=== PATIENT | female | born 1995 | race Caucasian/White ===

== ENCOUNTER 2018-05-16 19:12 | Emergency (ER) | payer OTHER ==
[2018-05-16 20:21] LABS: HEMATOCRIT 38.4 % (36.0-47.0); HEMOGLOBIN 13.2 g/dl (12.0-15.5); MEAN CORPUSCULAR HEMOGLOBIN 31.9 pg (27.0-33.0); MEAN CORPUSCULAR HGB CONC 34.4 g/dl (32.0-36.5); MEAN CORPUSCULAR VOLUME 92.8 fl (80.0-96.0); PLATELET COUNT, AUTOMATED 226 10^3/uL (150-450); RED BLOOD COUNT 4.14 10^6/uL (4.00-5.40); RED CELL DISTRIBUTION WIDTH 11.9 % (11.5-14.5); WHITE BLOOD COUNT 8.3 10^3/uL (4.0-10.0)
[2018-05-16 20:33] LABS: INR 1.14; PROTHROMBIN TIME 14.7 SECONDS (12.1-14.4)
[2018-05-16 20:35] LABS: CONTROL LINE HCG INT CTR LINE PRESENT; HCG, SERUM QUALITATIVE NEGATIVE (NEGATIVE)
[2018-05-16 20:39] LABS: ANION GAP 6 MEQ/L (8-16); BLOOD UREA NITROGEN 10 MG/DL (7-18); CALCIUM LEVEL 9.1 MG/DL (8.5-10.1); CARBON DIOXIDE LEVEL 31 MEQ/L (21-32); CHLORIDE LEVEL 105 MEQ/L (98-107); CREATININE FOR GFR 0.73 MG/DL (0.55-1.30); GLOMERULAR FILTRATION RATE > 60.0 (>60); GLUCOSE, FASTING 53 MG/DL (70-100); POTASSIUM SERUM 3.5 MEQ/L (3.5-5.1); SODIUM LEVEL 142 MEQ/L (136-145)
== END 2018-05-16 22:22 | disposition home or self-care (01) ==
LOC: M ED 19:12
DX: N93.8 Other specified abnormal uterine and vaginal bleeding (principal); N83.00 Follicular cyst of ovary, unspecified side; Z87.891 Personal history of nicotine dependence
CPT/HCPCS: 76856

== ENCOUNTER → 2018-05-27 | Outpatient (REF) | payer OTHER ==
[2018-05-27 18:43] LABS: CHLAMYDIA DNA AMPLIFICATION NEGATIVE (NEGATIVE); GC DNA AMPLIFICATION NEGATIVE (NEGATIVE)
== END ==
LOC: M SFHCLERA 12:14
DX: R11.10 Vomiting, unspecified (principal)

== ENCOUNTER 2018-08-27 22:29 | Emergency (ER) | payer OTHER ==
[~2018-08-27] VITALS: Ht 180.3 cm; Wt 56.8 kg
[2018-08-27 23:04] VITALS: BP 111/58
[2018-08-27 23:17] LABS: HEMATOCRIT 44.2 % (36.0-47.0); HEMOGLOBIN 14.9 g/dl (12.0-15.5); MEAN CORPUSCULAR HEMOGLOBIN 32.6 pg (27.0-33.0); MEAN CORPUSCULAR HGB CONC 33.7 g/dl (32.0-36.5); MEAN CORPUSCULAR VOLUME 96.7 fl (80.0-96.0); PLATELET COUNT, AUTOMATED 294 10^3/uL (150-450); RED BLOOD COUNT 4.57 10^6/uL (4.00-5.40); WHITE BLOOD COUNT 11.7 10^3/uL (4.0-10.0)
[2018-08-27 23:34] LABS: AMPHETAMINES LEVEL URINE NEGATIVE (NEGATIVE); BARBITURATES URINE NEGATIVE (NEGATIVE); BENZODIAZEPINES URINE NEGATIVE (NEGATIVE); CANNABINOIDS URINE POSITIVE (NEGATIVE); COCAINE METABOLITE URINE NEGATIVE (NEGATIVE); METHADONE URINE NEGATIVE (NEGATIVE); OPIATES URINE NEGATIVE (NEGATIVE); PHENCYCLIDINE URINE NEGATIVE (NEGATIVE)
[2018-08-27 23:39] LABS: ACETAMINOPHEN LEVEL < 2.0 UG/ML (10.0-30.0); ALBUMIN 4.3 GM/DL (3.2-5.2); ALT/SGPT 19 U/L (12-78); BILIRUBIN,DIRECT < 0.1 MG/DL (0.0-0.2); BILIRUBIN,TOTAL 0.2 MG/DL (0.2-1.0); BLOOD UREA NITROGEN 7 MG/DL (7-18); CALCIUM LEVEL 8.6 MG/DL (8.5-10.1); CARBON DIOXIDE LEVEL 30 MEQ/L (21-32); CHLORIDE LEVEL 107 MEQ/L (98-107); ETHYL ALCOHOL (ETHANOL) < 0.003 % (0.000-0.010); GLOMERULAR FILTRATION RATE > 60.0 (>60); GLUCOSE, FASTING 103 MG/DL (70-100); POTASSIUM SERUM 3.6 MEQ/L (3.5-5.1); SALICYLATE LEVEL 4.3 MG/DL (5.0-30.0); SODIUM LEVEL 141 MEQ/L (136-145); TOTAL PROTEIN 7.4 GM/DL (6.4-8.2)
== END 2018-08-28 01:43 | disposition home or self-care (01) ==
LOC: M ED 22:29
DX: F43.0 Acute stress reaction (principal); F17.200 Nicotine dependence, unspecified, uncomplicated
CPT/HCPCS: 36415; 80048; 80076; 80307; 84443; 85027; 99284; G0480

== ENCOUNTER → 2018-12-09 | Outpatient (REF) | payer OTHER ==
[~2018-12-09] MED LIST: DICY10CA13 PO
== END ==
LOC: M SFHCLERA 14:27
PROVIDERS: ATTEND Physician Assistant
DX: R10.84 Generalized abdominal pain (principal)
CPT/HCPCS: 81002; 81025; 87086; G0463

== ENCOUNTER 2018-12-10 23:24 | Emergency (ER) | payer OTHER ==
[~2018-12-10] VITALS: Ht 180.3 cm; Wt 55.9 kg
[2018-12-11 00:28] LABS: BASO % 0.2 % (0.0-1.0); EOS # 0.1 10^3/uL (0.0-0.50); EOS % 0.7 % (0.0-3.0); HEMATOCRIT 32.4 % (36.0-47.0); HEMOGLOBIN 11.1 g/dl (12.0-15.5); LYMPH # 1.7 10^3/uL (1.5-6.5); MEAN CORPUSCULAR HEMOGLOBIN 31.4 pg (27.0-33.0); MEAN CORPUSCULAR HGB CONC 34.3 g/dl (32.0-36.5); MEAN CORPUSCULAR VOLUME 91.8 fl (80.0-96.0); MONO # 0.5 10^3/uL (0.0-0.8); MONO % 4.8 % (0.0-5.0); NEUTROPHILS # 8.4 10^3/uL (1.8-7.7); NEUTROPHILS % 77.4 % (36.0-66.0); PLATELET COUNT, AUTOMATED 325 10^3/uL (150-450); RED BLOOD COUNT 3.53 10^6/uL (4.00-5.40); WHITE BLOOD COUNT 10.8 10^3/uL (4.0-10.0)
[2018-12-11 00:40] LABS: ALBUMIN 2.8 GM/DL (3.2-5.2); ALT/SGPT 25 U/L (12-78); BILIRUBIN,DIRECT 0.1 MG/DL (0.0-0.2); BILIRUBIN,TOTAL 0.5 MG/DL (0.2-1.0); BLOOD UREA NITROGEN 11 MG/DL (7-18); CALCIUM LEVEL 8.2 MG/DL (8.5-10.1); CARBON DIOXIDE LEVEL 28 MEQ/L (21-32); CHLORIDE LEVEL 105 MEQ/L (98-107); CREATININE FOR GFR 0.65 MG/DL (0.55-1.30); GLOMERULAR FILTRATION RATE > 60.0 (>60); GLUCOSE, FASTING 87 MG/DL (70-100); LIPASE 68 U/L (73-393); POTASSIUM SERUM 3.9 MEQ/L (3.5-5.1); SODIUM LEVEL 140 MEQ/L (136-145)
[2018-12-11 01:07] LABS: HCG, SERUM QUALITATIVE NEGATIVE (NEGATIVE)
[2018-12-11] MEDS: GASTROGRAFIN SOLUTION 30ML PO SCH ×2 (01:45→01:50)
[2018-12-11] MEDS ORDERED: ISOVUE-370 76% 100ML VIAL (Q9967) As Ordered ONE (02:45)
--- NOTE | 2018-12-11 03:47 | REPVR ---
EXAM: CT Abdomen and Pelvis With Contrast EXAM DATE/TIME: 12/11/2018 12:53 AM CLINICAL HISTORY: 23 years old, female; Abdominal pain; Generalized; Additional info: Diffuse abd pain, diarrhea x 3 weeks TECHNIQUE: Imaging protocol: Axial computed tomography images of the abdomen and pelvis with intravenous contrast. Coronal and sagittal reformatted images were created and reviewed. Radiation optimization: All CT scans at this facility use at least one of these dose optimization techniques: automated exposure control; mA and/or kV adjustment per patient size (includes targeted exams where dose is matched to clinical indication); or iterative reconstruction. Contrast material: ISO; Contrast volume: 100 ml; Contrast route: AC; COMPARISON: US PELVIC NON-OB COMPLETE 05/16/2018 9:08 PM FINDINGS: Tubes, catheters and devices: The liver at mid clavicular line measures 15.2 cm. ABDOMEN: Liver: Normal. No mass. Gallbladder and bile ducts: The gallbladder is contracted with no stones. Pancreas: Normal. No ductal dilation. Spleen: The spleen measures 12.5 cm and is upper normal. Adrenals: Normal. No mass. Kidneys and ureters: Normal. No hydronephrosis. Stomach and bowel: Much of the colon is collapsed or contracted. Appendix: There are no changes of appendicitis. A normal appendix is not seen. PELVIS: Bladder: Unremarkable as visualized. Reproductive: Question of right ovarian cyst measuring 2.4 cm. ABDOMEN and PELVIS: Intraperitoneal space: Mild free fluid in the cul-de-sac with a Hounsfield measurement of 21. Bones/joints: No acute fracture. No dislocation. Soft tissues: Unremarkable. Vasculature: Low SMA/aortic angle with narrowed left renal vein and proximal distention. There is collateralization as an accessory retroaortic left renal vein. Lymph nodes: Normal. No enlarged lymph nodes. IMPRESSION: 1. 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 2. Mild fluid in the cul-de-sac which is nonspecific. 3. Question right ovarian cyst measuring 2.4 cm. 4[address] Otherwise negative CT abdomen/pelvis. Electronically signed by: Giles Kelley On 12/11/2018 03:46:42 AM
[2018-12-11] MEDS ORDERED: METAL LOCK LOOP XX ONE (03:49)
[2018-12-11] MEDS ORDERED: KETOROLAC 30 MG/ML VIAL (J1885) IV ONE (04:00)
[2018-12-11] MEDS ORDERED: DICY10CA13 PO (04:17)
[2018-12-11 04:59] VITALS: BP 110/57
--- NOTE | 2018-12-11 13:39 | ED PDOC ---
Post-Departure Follow-Up [facility] faxed formal report of ct abd/p for fu Zenia Encinas MD Dec 11, 2018 13:39
== END 2018-12-11 05:11 | disposition home or self-care (01) ==
LOC: M ED 23:24
DX: R10.9 Unspecified abdominal pain (principal); I87.1 Compression of vein; R11.10 Vomiting, unspecified; R19.7 Diarrhea, unspecified; F17.200 Nicotine dependence, unspecified, uncomplicated
CPT/HCPCS: 74177; 80048; 80076; 81001; 83690; 84703; 85025; 87086; 96374; 99284; J1885; Q9963; Q9967

== ENCOUNTER → 2019-02-07 | Outpatient (REF) | payer OTHER ==
[2019-02-07 21:50] LABS: CHLAMYDIA DNA AMPLIFICATION NEGATIVE (NEGATIVE); GC DNA AMPLIFICATION NEGATIVE (NEGATIVE)
== END ==
LOC: M SFHCLERA 09:34
PROVIDERS: ATTEND Nurse Practitioner Family
DX: Z20.2 Contact with and (suspected) exposure to infections with a predominantly sexual mode of transmission (principal)
CPT/HCPCS: 81002; 81025; 87088; 87186; 87661; 96372; G0463; J0696

== ENCOUNTER 2019-10-21 17:02 | Emergency (ER) | payer OTHER ==
[~2019-10-21] VITALS: Ht 180.3 cm; Wt 54.9 kg
[~2019-10-21 17:02] MED LIST changes: -CIPR-249 PO; -PYRI1TAB5 PO
[2019-10-21] MEDS ORDERED: NS 1,000 ML IV SCH (17:17)
[2019-10-21] MEDS ORDERED: ONDANSETRON 4MG/2ML VIAL IV ONE (17:30)
[2019-10-21] MEDS ORDERED: KETOROLAC 30 MG/ML 1ML VIAL IV ONE (17:30)
[2019-10-21 17:44] LABS: BASO % 0.2 % (0.0-1.0); EOS # 0.2 10^3/uL (0.0-0.5); EOS % 1.4 % (0.0-3.0); HEMATOCRIT 42.7 % (36.0-47.0); HEMOGLOBIN 14.7 g/dl (12.0-15.5); LYMPH # 1.6 10^3/uL (1.5-5.0); LYMPH % 13.9 % (24.0-44.0); MEAN CORPUSCULAR HEMOGLOBIN 32.4 pg (27.0-33.0); MEAN CORPUSCULAR HGB CONC 34.4 g/dl (32.0-36.5); MEAN CORPUSCULAR VOLUME 94.1 fl (80.0-96.0); MONO # 0.6 10^3/uL (0.0-0.8); NEUTROPHILS # 9.3 10^3/uL (1.5-8.5); PLATELET COUNT, AUTOMATED 257 10^3/uL (150-450); RED BLOOD COUNT 4.54 10^6/uL (4.00-5.40); WHITE BLOOD COUNT 11.7 10^3/uL (4.0-10.0)
[2019-10-21 18:08] LABS: HCG, SERUM QUALITATIVE NEGATIVE (NEGATIVE)
[2019-10-21 18:09] LABS: ALT/SGPT 16 U/L (12-78); BILIRUBIN,DIRECT 0.2 MG/DL (0.0-0.2); BILIRUBIN,TOTAL 0.5 MG/DL (0.2-1.0); BLOOD UREA NITROGEN 9 MG/DL (7-18); CALCIUM LEVEL 9.4 MG/DL (8.5-10.1); CARBON DIOXIDE LEVEL 28 MEQ/L (21-32); CHLORIDE LEVEL 103 MEQ/L (98-107); CREATININE FOR GFR 0.78 MG/DL (0.55-1.30); GLOMERULAR FILTRATION RATE > 60.0 (>60); GLUCOSE, FASTING 88 MG/DL (70-100); LIPASE 59 U/L (73-393); POTASSIUM SERUM 3.5 MEQ/L (3.5-5.1); SODIUM LEVEL 136 MEQ/L (136-145); TOTAL PROTEIN 7.8 GM/DL (6.4-8.2)
--- NOTE | 2019-10-21 18:36 | REPVR ---
PROCEDURE INFORMATION: Exam: CT Abdomen And Pelvis Without Contrast Exam date and time: 10/21/2019 6:21 PM Age: 24 years old Clinical indication: Abdominal pain; Additional info: R flank pain TECHNIQUE: Imaging protocol: Computed tomography of the abdomen and pelvis without contrast. Radiation optimization: All CT scans at this facility use at least one of these dose optimization techniques: automated exposure control; mA and/or kV adjustment per patient size (includes targeted exams where dose is matched to clinical indication); or iterative reconstruction. COMPARISON: CT ABD/PEL W/IV ORAL CONTRAS 12/11/2018 2:42 AM FINDINGS: Liver: Normal. No mass. Gallbladder and bile ducts: Normal. No calcified stones. No ductal dilation. Pancreas: Normal. No ductal dilation. Spleen: Normal. No splenomegaly. Adrenals: Normal. No mass. Kidneys and ureters: Normal. No hydronephrosis. Stomach and bowel: Unremarkable. No obstruction. No mucosal thickening. Appendix: Although the appendix is not clearly visualized as a suggestion of appendiceal enlargement measuring 10 mm maximally. Correlation with clinical evaluation to exclude appendicitis suggested. Intraperitoneal space: Unremarkable. No free air. No significant fluid collection. Vasculature: Unremarkable. No abdominal aortic aneurysm. Lymph nodes: Unremarkable. No enlarged lymph nodes. Bladder: Unremarkable as visualized. Reproductive: 2.9 cm left ovarian cysts, likely functional. Bones/joints: Unremarkable. No acute fracture. Soft tissues: Unremarkable. IMPRESSION: Although the appendix is not clearly visualized as a suggestion of appendiceal enlargement measuring 10 mm maximally. Correlation with clinical evaluation to exclude appendicitis suggested. Electronically signed by: Vish Covarrubias On 10/21/2019 18:36:14 PM
[2019-10-21] MEDS ORDERED: CIPR-249 PO (19:07)
[2019-10-21] MEDS ORDERED: PYRI1TAB5 PO (19:07)
[2019-10-21 19:12] VITALS: BP 101/53
[2019-10-21] MEDS ORDERED: PHENAZOPYRIDINE 100 MG TAB PO ONE (19:15)
[2019-10-21] MEDS ORDERED: CIPROFLOXACIN 500MG TABLET PO ONE (19:15)
--- NOTE | 2019-10-22 09:33 | ED PDOC ---
Post-Departure Follow-Up [facility] faxed formal report of ct abd/p for fu Zenia Encinas MD Oct 22, 2019 09:33
== END 2019-10-21 19:18 | disposition home or self-care (01) ==
LOC: M ED 17:02
DX: N10 Acute pyelonephritis (principal); M54.5 Low back pain; R10.2 Pelvic and perineal pain
CPT/HCPCS: 74176; 80048; 80076; 81001; 81002; 81025; 83690; 84703; 85025; 87070; 87077; 87088; 87186; 87661; 96361; 96374; 96375; 99284; G0463; J1885; J2405

== ENCOUNTER → 2019-10-21 | Outpatient (REF) | payer OTHER ==
[~2019-10-21] MED LIST changes: +CIPR-249 PO; +PYRI1TAB5 PO
[2019-10-21 18:55] LABS: CHLAMYDIA DNA AMPLIFICATION NEGATIVE (NEGATIVE); GC DNA AMPLIFICATION NEGATIVE (NEGATIVE)
== END ==
LOC: M SFHCLERA 10:45
PROVIDERS: ATTEND Physician Assistant
DX: R10.2 Pelvic and perineal pain (principal)